=== PATIENT | female | born 1970 | race Caucasian/White ===

== ENCOUNTER 2025-06-30 13:03 | Emergency (ER) | payer MEDICAID ==
[~2025-06-30] VITALS: Ht 162.6 cm; Wt 78.8 kg
[2025-06-30 13:17] VITALS: BP 147/78; PULSE 87; RESP 18; TEMP 98.2; O2SAT 100
[2025-07-01] MEDS ORDERED: CEPH-585 PO (16:27)
[2025-07-01] MEDS ORDERED: HYDR-3965 PO (16:27)
[2025-07-01] MEDS ORDERED: MAGN296S68 PO (16:27)
== END 2025-06-30 15:35 | disposition left against medical advice (07) ==
LOC: ER 13:04
DX: R10.9 Unspecified abdominal pain (principal); Z88.8 Allergy status to other drugs, medicaments and biological substances; Z53.21 Procedure and treatment not carried out due to patient leaving prior to being seen by health care provider

== ENCOUNTER 2025-07-01 14:39 | Emergency (ER) | payer MEDICAID ==
[~2025-07-01] VITALS: Ht 167.6 cm; Wt 81.0 kg
[2025-07-01 14:57] VITALS: BP 180/108; PULSE 91; RESP 18; O2SAT 100
--- NOTE | 2025-07-01 15:02 | Physician Documentation ---
History of Present Illness ~ Chief Complaint: Back Pain Stated Complaint: BACK/SIDE PAIN Time Seen by MD: 16:13 HPI 54-year-old female presents with a multiple complaints including right pelvic pain recent constipation difficulty having bowel movements denies any fevers has not had a real bowel movement in the last six days reports that she is still passing gas. Her pain is primarily in her right lower quadrant and pelvic region Day of Onset: Jul 01, 2025 Medication Reconciliation Allergies: Coded Allergies: morphine (Unverified Allergy, Intermediate, ITICHING, 07/01/25) Scheduled Cephalexin*Monohydrate* (Keflex*), 1 CAP PO QID Magnesium Citrate (MAGNESIUM CITRATE oral solution), 296 ML PO ONCE Scheduled PRN Hydrocodone Bit/Acetaminophen 5/325 MG ([place] 5/325 MG), 1 TAB PO Q6H PRN for pain Review of Systems All Other Systems at this time: Reviewed and Negative Physical Exam Physical Exam Vital Signs: Temperature: 97.0, Source: Temporal, Heart Rate: 91, Respiratory Rate: 18, BP: 180/108, Pulse Oximetry: 100, Weight: 81.000 Physical Exam General: Alert, no apparent distress. Gastrointestinal: Soft, nontender, nondistended. Bowels sounds present. tender RLQ Neurologic: Oriented x4. Psychiatric: Normal mood and affect. Skin: Normal color, warm and dry. No edema, no ecchymosis. Progress Results/Orders Results/Orders Orders - SANTOS LUZ [employer] Ct Abdomen Pelvis (07/01/25 15:38) Cult Urine + [place] Ct (07/01/25 15:40) Completed Orders - S[employer] Hcg, Ur Ql (07/01/25 15:00) Cbc/Diff (07/01/25 15:00) Amylase (07/01/25 15:00) Lipase (07/01/25 15:00) Ct Abdomen Pelvis (07/01/25 15:38) Ua W/Microscopic, Cult If Ind (07/01/25 15:05) Vital Signs 07/01/25 07/01/25 14:57 16:38 Temp 97.0 97.0 Pulse 91 Resp 18 B/P (MAP) 180/108 Pulse Ox 100 Laboratory Tests Test 07/01/25 15:05 07/01/25 15:11 Urine Specimen Description Cln catch midstream Urine Color Yellow Urine Clarity Clear Urine pH 6.0 Urine Specific [place] 1.010 Urine Protein Negative Urine Glucose (UA) Negative Urine Ketones Negative Urine Occult Blood Negative Urine Nitrite Negative Urine Bilirubin Negative Urine Urobilinogen 0.2 Urine Leukocyte Esterase Moderate H Urine RBC None seen Urine WBC 20-30 H Urine Squamous Epithelial Cells Moderate Urine Bacteria Few Urine Hyaline Casts 0-3 Urine Culture Indicated Indicated Volume Urine Centrifuged 10 ml Urine HCG, Qualitative Negative Urine Comment White Blood Count 8.4 Red Blood Count 4.42 Hemoglobin 13.5 Hematocrit 40.2 Mean Corpuscular Volume 90.8 Mean Corpuscular Hemoglobin 30.6 Mean Corpuscular Hemoglobin Concent 33.7 Red Cell Distribution Width 12.6 Platelet Count 281 Mean Platelet Volume 8.8 Neutrophils (%) (Auto) 61.7 Lymphocytes (%) (Auto) 29.1 Monocytes (%) (Auto) 8.2 Eosinophils (%) (Auto) 0.7 Basophils (%) (Auto) 0.3 Neutrophils # (Auto) 5.2 Lymphocytes # (Auto) 2.4 Monocytes # (Auto) 0.7 Eosinophils # (Auto) 0.1 Basophils # (Auto) 0.0 CBC Comment Amylase Level 38 Lipase 31 Microbiology Date/Time Source Procedure Growth Status 07/01/25 15:40 Urine Clean Catch Midstream Urine Culture - Preliminary Culture received. Resulted Medical Decision Making Findings PT laboratory values and CT findings are overall very reassuring. CT indicates a possible ovarian cyst with no evidence of rupture or free air. . she continued to complain of constipation and urinary frequency. She also complains of pelvic pain. Send her with a short dose of [place] for pain, ABX for urinary symtpoms and MAg citrate for constipation Differential Dx:Considerations: Include: AAA, Aortic dissection, , Appendicitis, Bowel obstruction, Cholelithiasis, Cholangitis, DJD, Ectopic , Fracture, Hepatitis, HNP, Musculoskeletal pain, Pancreatitis, Pyelonephritis, Strain, Urinary obstruction, Urolithiasis, Ovarian torsion, Other Departure Disposition: HOME / SELF CARE / HOMELESS Impression: Primary Impression: Constipation Additional Impressions: Pelvic pain Ovarian cyst Condition: Stable Discharge Instructions: Ovarian Cyst Referrals: NO PRIMARY CARE PROVIDER (PCP) Prescriptions Magnesium Citrate (MAGNESIUM CITRATE oral solution) 296 Ml Solution 296 ML PO ONCE for 1 Day, #296 ML 0 Refills Prov: S[employer]OS [employer] 07/01/25 Hydrocodone Bit/Acetaminophen 5/325 MG ([place] 5/325 MG) 5 Mg/325 Mg Tablet 1 TAB PO Q6H PRN for pain, #14 TAB Prov: S[employer]OS [employer] 07/01/25 Cephalexin*Monohydrate* (Keflex*) 500 Mg Capsule 1 CAP PO QID, #40 CAP Prov: S[employer]OS [employer] 07/01/25 Education Educated: Patient Educated regarding: diagnosis Signature Scribe Signature: t Attestation: Scribed for Santos Lzu [employer] by Santos Luz - GARY . 07/01/25 16:24 SANTOS LUZ NP Jul 01, 2025 15:02
[2025-07-01 15:26] LABS: LEUKOCYTE ESTERASE ,URINE MODERATE (Neg); NITRITES, URINE NEGATIVE (Neg); OCCULT BLOOD,URINE NEGATIVE (Neg)
[2025-07-01 15:27] LABS: MEAN PLATELET VOLUME 8.8 FL (7.4-10.4); RED CELL DISTRIBUTION WIDTH 12.6 % (11.5-14.5)
[2025-07-01 15:27] LABS: URINE HCG NEGATIVE (NEG)
[2025-07-01 15:38] LABS: UA COLLECTION TYPE CLN CATCH MIDSTREAM
[2025-07-01 15:39] LABS: HYALINE CASTS 0-3 /LPF (NEGATIVE); SQUAMOUS EPITHELIAL CELL,UR MODERATE /LPF (FEW)
--- NOTE | 2025-07-01 15:52 | RADIOLOGY REPORT ---
CLINICAL INFORMATION: 54 years old, Female; abd/pelvic pain . TECHNIQUE: Axial CT images of the abdomen and pelvis were obtained without IV contrast. Coronal and s agittal reformatted images were obtained, reviewed, and stored. Evaluation of the parenchymal organs is limited without IV contrast. Evaluation of the bowel and mesentery is limited without oral contras t. All CT scans at this medical facility are performed using dose modulation techniques as appropriat e to a performed exam including the following: Automated exposure control was utilized; adjustment of the MA and/or KV according to patient size; and use of iterative reconstruction technique. CTDIvol = 21.51 mGy DLP = 1091.1 mGy-cm COMPARISON: None FINDINGS: Lung bases: Lung bases are clear. Liver: Grossly unremarkable in its noncontrast enhanced appearance. No abnormal density or focal lesi on identified. Biliary: Cholecystectomy. Spleen: Unremarkable. Pancreas: Grossly unremarkable in its noncontrast enhanced appearance. Adrenal glands: Unremarkable. No mass. Kidneys: No hydronephrosis. No renal or ureteral calculi. Aorta/Vascular: Scattered atherosclerotic calcification. No abdominal aortic aneurysm. Retroperitoneum: No mass or lymphadenopathy. Bowel/mesentery: No small bowel obstruction. No free air or free fluid. Appendix is visualized and ap pears unremarkable. Scattered colonic diverticula without adjacent inflammatory changes to suggest d iverticulitis. Pelvic organs: Uterus is surgically absent. Right ovarian cystic structure measuring up to 3.6 cm. Bladder: Unremarkable. No mass. Abdominal wall: Very small fat containing umbilical hernia. Bones: No acute fracture or suspicious intraosseous lesion. IMPRESSION: 1. Cystic structure in the right ovary, likely ovarian cyst. Correlate with clinical findings. Pelvic ultrasound could be obtained to further evaluate if clinically indicated. 2. Scattered colonic diverticula without adjacent inflammatory changes to suggest diverticulitis. 3. Additional nonacute findings as described above.
[2025-07-01] MEDS ORDERED: MAGN296S68 PO (16:27)
[2025-07-01] MEDS ORDERED: CEPH-585 PO (16:27)
[2025-07-01] MEDS ORDERED: HYDR-3965 PO (16:27)
[2025-07-01 16:38] VITALS: TEMP 97
== END 2025-07-01 16:40 | disposition home or self-care (01) ==
LOC: ER 14:40
DX: N83.201 Unspecified ovarian cyst, right side (principal); K59.00 Constipation, unspecified; R10.2 Pelvic and perineal pain; Z88.5 Allergy status to narcotic agent; Z79.899 Other long term (current) drug therapy
CPT/HCPCS: 36415; 74176; 81001; 81025; 82150; 83690; 85025; 87088; 99284